=== PATIENT | female | born 1935 | race Caucasian/White ===

== ENCOUNTER 2019-06-10 12:52 | Outpatient (CLI) | payer MEDICARE, OTHER, SELFPAY ==
--- NOTE | 2019-06-10 13:03 | ECG_ITS ---
Measurements Intervals [place] Rate: 56 P: 86 AK: 213 QRS: -7 QRSD: 80 T: 53 QT: 398 QTc: 387 Interpretive Statements SINUS BRADYCARDIA WITH FIRST DEGREE AV BLOCK LOW QRS VOLTAGE IN PRECORDIAL LEADS BORDERLINE R WAVE PROGRESSION, ANTERIOR LEADS BASELINE ARTIFACT- I, II, III, AVR, AVL, AVF ABNORMAL ECG Electronically Signed On 06-10-2019 14:36:54 ANALYTICS ANALYST by Alexis Valentino D.O.
[2019-06-10 13:39] LABS: Blood Urea Nitrogen 17 mg/dL (7-17); Calcium 9.3 mg/dL (8.4-10.2); Carbon Dioxide 30 mmol/L (22-30); Chloride 101 mmol/L (98-107); Estimated Glomerular Filt Rate 53; Glucose 96 mg/dL (65-105); Potassium 4.2 mmol/L (3.4-5.0); Sodium 139 mmol/L (137-145)
== END 2019-06-10 12:53 | disposition home or self-care (01) ==
PROVIDERS: Anesthesiology; PCP Internal Medicine Endocrinology, Diabetes & Metabolism; Visit Provider Urology
DX: Z01.818 Encounter for other preprocedural examination (principal); I10 Essential (primary) hypertension; E11.9 Type 2 diabetes mellitus without complications; R94.31 Abnormal electrocardiogram [ECG] [EKG]
CPT/HCPCS: 36415; 80048; 93005

== ENCOUNTER 2019-06-12 01:36 | Day surgery (SDC) | payer MEDICARE, OTHER, SELFPAY ==
[2019-06-09 13:48] VITALS: BMI 22.4
--- NOTE | 2019-06-12 07:25 | WPDHPUPDATE1 ---
History and Physical Update Update Date/Time: 06/12/19 07:25 History and Physical has been reviewed, including an updated exam of the patient. There are NO changes in the patient's condition. Risks, benefits, and alternatives have been discussed and questions answered. Patient agrees to proceed with procedure.
[2019-06-12 08:34] VITALS: BP 123/45; PULSE 55; RESP 20; TEMP 36.5; O2SAT 100
[2019-06-12] MEDS: LACTATED RINGERS 1,000 ML 30 ML IV CONT (08:55)
[2019-06-12 09:03] LABS: Glucose Point of Care 135 (65-105)
--- NOTE | 2019-06-12 09:17 | WPDANESEPPF ---
Anes - Initial Pre Proc Eval Procedure: Operation Date: 06/12/19 10:00 Proposed Procedures p Cystoscopy,Bladder Biopsy with Steroid Injection - Gilles Martinez MD Date/Time: 06/12/19 09:17 Surgeon: Gilles Martinez MD Pre Op Diagnosis: hunners ulcer Patient Data Age: 84 Gender: F Height: 1.69 m Weight: 63.96 kg Allergies Allergy/AdvReac Type Severity Reaction Status Date / Time Sulfa (Sulfonamide Allergy Severe EYE Verified 06/09/19 13:39 Antibiotics) SWELLING Home Medications Medication Instructions Recorded Confirmed Type aspirin 81 mg PO DAILY 06/09/19 06/09/19 History atenolol 25 mg PO DAILY 06/09/19 06/09/19 History biotin 1 mg PO DAILY 06/09/19 06/09/19 History ergocalciferol (vitamin D2) 400 unit PO DAILY 06/09/19 06/09/19 History glucos sul [id number] 1 cap PO DAILY 06/09/19 06/09/19 History [Glucosamine Chondroitin] levothyroxine 100 mcg PO DAILY 06/09/19 06/09/19 History magnesium 200 mg PO DAILY 06/09/19 06/09/19 History multivitamin [Multiple Vitamins] 1 tablet PO DAILY 06/09/19 06/09/19 History rosuvastatin 10 mg PO 2XW 06/09/19 06/09/19 History sitagliptin-metformin [Janumet] 1 tablet PO BID 06/09/19 06/09/19 History zinc 50 mg PO DAILY 06/09/19 06/09/19 History Laboratory Tests 06/12/19 09:01 POC Capillary Glucose 135 mg/dl H mg/dl (65-105) Patient hx anesthesia problems: none Family hx anesthesia problems: none PMFSH Past Medical History Medical History (Updated 06/12/19 @ 09:17 by Elijah Newberry DO) Diabetes type 2, controlled History of skin cancer Hyperlipidemia Hypertension Hypothyroidism IBS (irritable bowel syndrome) JOEY (obstructive sleep apnea) CPAP Osteoarthritis Social History Social History Gender identity (if verbalized by the patient): Female Anes - Eval Final PreProcedure Day of Procedure 06/12/19 09:17 Patient weight: normal Heart: regular rate and rhythm Lungs: clear to auscultation and normal air movement Airway: Mallampati scale class III Neurological: alert and oriented Last oral intake: >/= 8 hours ASA classification: III Emergent: no Anesthetic plan: proceed Anesthesia type and monitoring: general GIVS and standard monitoring Informed Consent: The patient's anesthetic plan and its attendant risks and benefits were discussed with the patient/family/POA. Questions were solicited and answers provided to the satisfaction of the patient/family/POA.
[2019-06-12] MEDS: levoFLOXacin 500 MG/D5W 100 ML 500 MG/100 ML BAG 100 MG IVPB (10:04)
[2019-06-12] MEDS: TRIAMCINOLONE ACET INJ 40 MG/ML VIAL 200 MG IM (10:12)
[2019-06-12] MEDS: LIDOCAINE HCL 2% GEL UROJET 10 ML PKG MUCOUS MEM (10:13)
--- NOTE | 2019-06-12 10:19 | PM.PROC ---
Procedure Note - Detailed Date of procedure: 06/12/19 Pre-op diagnosis: hunners ulcer Hunner's ulcer Post-op diagnosis: same Procedure performed: Cystoscopy with bladder biopsy and injection of steroid Description of procedure: After anesthesia was induced the patient was correctly identified and informed consent was obtained. They are placed in the dorsal lithotomy position. There prepped and draped in a sterile fashion. A time-out performed. I performed cystoscopy. There were areas of Hunner's ulceration inside the bladder. Two total. They were both on the back wall. this was biopsied in generously fulgurated. I then injected Kenalog at a dose of 40 milligrams/mL. I injected 5 cc total. There was minimal bleeding from the injection sites. The bladder was examined under low insufflation pressures and there was no active bleeding. The bladder was drained. The awakened and transferred to the PACU in stable condition. Implants: None Anesthesia: MAC Surgeon: Gilles Martinez MD Drains: No Packing: No Pathology: yes (Bladder biopsy) Complications: No immediate complications Condition: stable Disposition: PACU
[2019-06-12 10:25] VITALS: BP 97/34; PULSE 64; O2SAT 94
[2019-06-12 10:45] VITALS: BP 106/41; PULSE 59; O2SAT 96
[2019-06-12 11:00] VITALS: BP 113/42; PULSE 57; O2SAT 96
[2019-06-12 11:30] VITALS: BP 130/50; PULSE 62; O2SAT 98
== END 2019-06-12 11:48 | disposition home or self-care (01) ==
PROVIDERS: PCP Internal Medicine Endocrinology, Diabetes & Metabolism; Visit Provider Urology
PROC: 0TBB8ZX Excision of Bladder, Via Natural or Artificial Opening Endoscopic, Diagnostic (ICD-10-PCS; CPT 52204; principal; 2019-06-12 10:00)
DX: N30.10 Interstitial cystitis (chronic) without hematuria (principal); I10 Essential (primary) hypertension; E78.5 Hyperlipidemia, unspecified; E11.9 Type 2 diabetes mellitus without complications; E03.9 Hypothyroidism, unspecified; G47.33 Obstructive sleep apnea (adult) (pediatric); M19.90 Unspecified osteoarthritis, unspecified site; Z79.82 Long term (current) use of aspirin; Z79.84 Long term (current) use of oral hypoglycemic drugs
CPT/HCPCS: 52283; 52204; 88305; A9270; J1956; J2704; J3010; J3301; J7120

== ENCOUNTER 2021-11-09 11:05 | Outpatient (CLI) | payer MEDICARE, OTHER, SELFPAY ==
--- NOTE | 2021-11-09 11:16 | ECG_ITS ---
Measurements Intervals [place] Rate: 65 P: 67 TN: 227 QRS: -7 QRSD: 71 T: 51 QT: 382 QTc: 397 Interpretive Statements SINUS RHYTHM WITH FIRST DEGREE AV BLOCK BASELINE ARTIFACT- I, II, AVR, AVL ABNORMAL ECG Electronically Signed On 11-09-2021 12:15:39 CDT by Alexis Valentino D.O.
[2021-11-09 11:58] LABS: Anion Gap 5 mmol/L (8-16); Blood Urea Nitrogen 18 mg/dL (7-17); Calcium 9.1 mg/dL (8.4-10.2); Carbon Dioxide 29 mmol/L (22-30); Chloride 106 mmol/L (98-107); Estimated Glomerular Filt Rate 53; Glucose 137 mg/dL (65-110); Potassium 4.1 mmol/L (3.4-5.0); Sodium 140 mmol/L (137-145)
== END 2021-11-09 11:06 | disposition home or self-care (01) ==
PROVIDERS: Anesthesiology; PCP Internal Medicine; Visit Provider Urology
DX: N32.9 Bladder disorder, unspecified (principal); E11.9 Type 2 diabetes mellitus without complications; Z01.818 Encounter for other preprocedural examination; I44.0 Atrioventricular block, first degree
CPT/HCPCS: 36415; 80048; 87077; 87086; 87186; 93005

== ENCOUNTER 2021-12-08 01:11 | Day surgery (SDC) | payer MEDICARE, OTHER, SELFPAY ==
[2021-11-07 08:21] VITALS: BMI 21.3
--- NOTE | 2021-11-07 08:40 | PC.NURSE ---
Report to the Outpatient Waiting Room, entrance under the green pavilion located off [facility], at time _1145_ on date _11/13/21_. OR Time: _1:45 PM_. - You and your visitor will be asked a series of questions to screen for COVID 19 for your protection. - Only one visitor is allowed at this time. - The patient visitor is requested to leave or wait in car when not with patient. - A mask is required within the hospital. Patients may have clear liquids (water, carbonated beverages, clear teas, apple juice) until 3 hours prior to surgery (1045 AM) with a maximum of 20 ounces. - No food from midnight until time of surgery Take the following medications with a SIP of water the morning of surgery: _ATENOLOL, LEVOTHYROXINE_ Medications to discontinue per physician _PT STATES ALREADY STOPPING ASPIRIN/VITAMINS/SUPPLEMENTS 10/30/21_ Date to take last dose Please no make-up, nail yakut, hairspray, perfume, deodorant, or body powder the day of surgery. No jewelry (including any body piercings) or valuables the day of surgery, leave them at home. Please take a shower or bath the night before, or the morning of, surgery with an antibacterial soap. Wear comfortable, loose fitting clothing. - Jewelry must be removed prior to entering the operating room. Rings and piercings that are not removed may be cut off. - The hospital will not accept responsibility for valuables. - Please leave all valuables, including medications, at home the day of surgery. If you are going home after surgery, a licensed special client bus driver must drive you home. - NO public transportation without another adult. - We recommend that an adult stay with you for 24 hours following discharge. - We also recommend that you do not drive, make important decision, drink alcoholic beverages, or take any drugs that were not prescribed by your health care provider for at least 24 hours after your discharge time. Follow any additional instructions given to you from your surgeon. If you or anyone in your household have experienced Covid symptoms in the past week, please notify your surgeon or the nurse liaison at the phone number below for possible testing. Telephone instructions given to ___PT and asked if any additional questions and then verbalized understanding. Patient advised to call surgeon office or pre surgery nurse liaison [phone] if any additional questions.
--- NOTE | 2021-11-11 10:56 | P.HP_ITS ---
H&P: HPI History of Present Illness Date/Time: 11/11/21 10:56 Chief Complaint: she has pelvic pains and bladder pains and feels like she is ready for another steroid injection. It has been sometime since her last injection. Review of Systems Review of Systems: as per history of present illness [facility] Past Medical History Medical History Diabetes type 2, controlled History of skin cancer Hyperlipidemia Hypertension Hypothyroidism IBS (irritable bowel syndrome) JEOY (obstructive sleep apnea) CPAP Osteoarthritis Social History Social History Smoking status: Former smoker Second hand tobacco smoke exposure: No Substance use: never Substance use type: does not use Gender identity (if verbalized by the patient): Female Spiritual care concerns: No Meds Home Medications and Allergies Home Medications Medication Instructions Recorded Confirmed Type aspirin 81 mg chewable tablet 81 mg PO HS 06/09/19 11/07/21 History atenolol 25 mg tablet 25 mg PO QAM 06/09/19 11/07/21 History ergocalciferol (vitamin D2) 10 mcg 400 unit PO DAILY 06/09/19 11/07/21 History (400 unit) tablet glucosamine sulf dipot 1 cap PO DAILY 06/09/19 11/07/21 History chlr,msm,chond 550 mg-C 30 mg-severino 1 mg capsule (Glucosamine Chondroitin) magnesium 200 mg tablet 200 mg PO HS 06/09/19 11/07/21 History multivitamin (Multiple Vitamins 1 tablet PO QAM 06/09/19 11/07/21 History tablet) rosuvastatin 10 mg tablet 10 mg PO 2XW 06/09/19 11/07/21 History sitagliptin 50 mg-metformin 500 mg 1 tablet PO BID 06/09/19 11/07/21 History tablet (Janumet) zinc 50 mg tablet 50 mg PO DAILY 06/09/19 11/07/21 History levothyroxine 75 mcg tablet 75 mcg PO QAM 11/07/21 11/07/21 History niacin 500 mg tablet 500 mg PO QAM 11/07/21 11/07/21 History omeprazole 20 mg tablet,delayed 20 mg PO DAILY PRN ACID REFLEX 11/07/21 11/07/21 History release ondansetron HCl 4 mg tablet 4 mg PO Q6H PRN Nausea 11/07/21 11/07/21 History Allergies Allergy/AdvReac Type Severity Reaction Status Date / Time Sulfa (Sulfonamide Allergy Severe EYE Verified 11/07/21 08:09 Antibiotics) SWELLING Exam Narrative: no acute distress alert and oriented x3 normal breathing Assessment and Plan Assessment and plan (1) 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 Understands the risks of bleeding, infection, recurrence, chance the ulcers not present. She agrees to proceed
--- NOTE | 2021-11-13 08:29 | SUR.PREOP ---
[address] ross resulted abnormal urine culture,states called in antibiotic .
[2021-11-27 14:37] VITALS: BMI 21.3
--- NOTE | 2021-11-27 14:40 | PC.NURSE ---
PRE-OP INSTRUCTIONS, PLEASE READ CAREFULLY Report to the Outpatient Waiting Room, entrance under the green pavilion located off [facility], at time _0915_ on date _12/08/21_. OR Time: _1115_. - You and your visitor will be asked a series of questions to screen for COVID 19 for your protection. - Only one visitor is allowed at this time. - The patient visitor is requested to leave or wait in car when not with patient. - A mask is required within the hospital. Patients may have clear liquids (water, carbonated beverages, clear teas, apple juice) until 3 hours prior to surgery (0815 AM) with a maximum of 20 ounces. - No food from midnight until time of surgery Take the following medications with a SIP of water the morning of surgery: _ATENOLOL, LEVOTHYROXINE__ Medications to discontinue - _ASPIRIN/VITAMINS/SUPPLEMENTS PER DR. SALINAS INSTRUCTIONS - PT STATES 7 DAYS PRIOR TO SURGERY_ Date to take last dose_12/04/21_ Please no make-up, nail romanian, hairspray, perfume, deodorant, or body powder the day of surgery. No jewelry (including any body piercings) or valuables the day of surgery, leave them at home. Please take a shower or bath the night before, or the morning of, surgery with an antibacterial soap. Wear comfortable, loose fitting clothing. - Jewelry must be removed prior to entering the operating room. Rings and piercings that are not removed may be cut off. - The hospital will not accept responsibility for valuables. - Please leave all valuables, including medications, at home the day of surgery. If you are going home after surgery, a licensed residential driver must drive you home. - NO public transportation without another adult. - We recommend that an adult stay with you for 24 hours following discharge. - We also recommend that you do not drive, make important decision, drink alcoholic beverages, or take any drugs that were not prescribed by your health care provider for at least 24 hours after your discharge time. Follow any additional instructions given to you from your surgeon. If you or anyone in your household have experienced Covid symptoms in the past week, please notify your surgeon or the nurse liaison at the phone number below for possible testing. Telephone instructions given to __PT__and asked if any additional questions and then verbalized understanding. Patient advised to call surgeon office or pre surgery nurse liaison [phone] if any additional questions.
--- NOTE | 2021-12-04 07:54 | P.HP_ITS ---
H&P: HPI History of Present Illness Date/Time: 12/04/21 07:54 Chief Complaint: Hunner's ulcer Narrative: in need of another steroid injection Review of Systems 2 Review of Systems: All systems reviewed & are unremarkable except as noted in HPI and below PMFSH Past Medical History Medical History Diabetes type 2, controlled History of skin cancer Hyperlipidemia Hypertension Hypothyroidism IBS (irritable bowel syndrome) JOEY (obstructive sleep apnea) CPAP Osteoarthritis Social History Social History Smoking status: Former smoker Second hand tobacco smoke exposure: No Substance use: never Substance use type: does not use Gender identity (if verbalized by the patient): Female Spiritual care concerns: No Meds Home Medications and Allergies Home Medications Medication Instructions Recorded Confirmed Type aspirin 81 mg chewable tablet 81 mg PO HS 06/09/19 11/27/21 History atenolol 25 mg tablet 25 mg PO QAM 06/09/19 11/07/21 History ergocalciferol (vitamin D2) 10 mcg 400 unit PO DAILY 06/09/19 11/27/21 History (400 unit) tablet glucosamine sulf dipot 1 cap PO DAILY 06/09/19 11/27/21 History chlr,msm,chond 550 mg-C 30 mg-severino 1 mg capsule (Glucosamine Chondroitin) magnesium 200 mg tablet 200 mg PO HS 06/09/19 11/07/21 History multivitamin (Multiple Vitamins 1 tablet PO QAM 06/09/19 11/27/21 History tablet) rosuvastatin 10 mg tablet 10 mg PO 2XW 06/09/19 11/07/21 History sitagliptin 50 mg-metformin 500 mg 1 tablet PO BID 06/09/19 11/07/21 History tablet (Janumet) zinc 50 mg tablet 50 mg PO DAILY 06/09/19 11/27/21 History levothyroxine 75 mcg tablet 75 mcg PO QAM 11/07/21 11/07/21 History niacin 500 mg tablet 500 mg PO QAM 11/07/21 11/07/21 History omeprazole 20 mg tablet,delayed 20 mg PO DAILY PRN ACID REFLEX 11/07/21 11/07/21 History release ondansetron HCl 4 mg tablet 4 mg PO Q6H PRN Nausea 11/07/21 11/07/21 History Allergies Allergy/AdvReac Type Severity Reaction Status Date / Time Sulfa (Sulfonamide Allergy Severe EYE Verified 11/07/21 08:09 Antibiotics) SWELLING Exam Narrative: no acute distress normal breathing alert oriented x3 Assessment and Plan Assessment and plan (1) 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
--- NOTE | 2021-12-08 07:12 | WPDHPUPDATE1 ---
History and Physical Update Update Date/Time: 12/08/21 07:12 History and Physical has been reviewed, including an updated exam of the patient. There are NO changes in the patient's condition. Risks, benefits, and alternatives have been discussed and questions answered. Patient agrees to proceed with procedure.
[2021-12-08 09:33] LABS: Appearance Urine Clear (Clear); Bilirubin Urine Negative (Negative); Color Urine Yellow (Yellow); Glucose Urine UA Negative (Negative); Ketones Urine Negative (Negative); Leukocyte Esterase Ur 1+ LEU/UL (Negative); Nitrate Urine Negative (Negative); Protein Urine Negative (Negative); Specific Grav Ur 1.015 (1.001-1.035); Urobilinogen Urine 0.2 mg/dL (<2.0)
[2021-12-08 09:45] LABS: Add Urine Microscopic? YES; Blood Urine Trace-Intact (Negative)
[2021-12-08 09:46] LABS: Bacteria Urine Trace /hpf; RBC Urine 0-2 /hpf (0-2); Squamous Epithelial Cell Urine Rare /hpf (Few)
--- NOTE | 2021-12-08 09:54 | WPDANESEPPF ---
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 Patient Data Age: 86 Gender: F Height: 1.7 m Weight: 61.36 kg Allergies Allergy/AdvReac Type Severity Reaction Status Date / Time Sulfa (Sulfonamide Allergy Severe EYE Verified 11/07/21 08:09 Antibiotics) SWELLING Home Medications Medication Instructions Recorded Confirmed Type aspirin 81 mg chewable tablet 81 mg PO HS 06/09/19 11/27/21 History atenolol 25 mg tablet 25 mg PO QAM 06/09/19 11/07/21 History ergocalciferol (vitamin D2) 10 mcg 400 unit PO DAILY 06/09/19 11/27/21 History (400 unit) tablet glucosamine sulf dipot 1 cap PO DAILY 06/09/19 11/27/21 History chlr,msm,chond 550 mg-C 30 mg-severino 1 mg capsule (Glucosamine Chondroitin) magnesium 200 mg tablet 200 mg PO HS 06/09/19 11/07/21 History multivitamin (Multiple Vitamins 1 tablet PO QAM 06/09/19 11/27/21 History tablet) rosuvastatin 10 mg tablet 10 mg PO 2XW 06/09/19 11/07/21 History sitagliptin 50 mg-metformin 500 mg 1 tablet PO BID 06/09/19 11/07/21 History tablet (Janumet) zinc 50 mg tablet 50 mg PO DAILY 06/09/19 11/27/21 History levothyroxine 75 mcg tablet 75 mcg PO QAM 11/07/21 11/07/21 History niacin 500 mg tablet 500 mg PO QAM 11/07/21 11/07/21 History omeprazole 20 mg tablet,delayed 20 mg PO DAILY PRN ACID REFLEX 11/07/21 11/07/21 History release ondansetron HCl 4 mg tablet 4 mg PO Q6H PRN Nausea 11/07/21 11/07/21 History Laboratory Tests 12/08/21 09:26 Urine Color Yellow (Yellow) Urine Appearance Clear (Clear) Urine pH 6.0 (5.0-9.0) Ur Specific [place] 1.015 (1.001-1.035) Urine Protein Negative mg/dL mg/dL (Negative) Urine Glucose (UA) Negative mg/dL mg/dL (Negative) Urine Ketones Negative mg/dL mg/dL (Negative) Ur Blood (Man) Trace-intact (Negative) Urine Nitrate Negative (Negative) Urine Bilirubin Negative (Negative) Urine Urobilinogen 0.2 mg/dL mg/dL (<2.0) Leukocyte Esterase Rfl 1+ MARIBELL/UL H MARIBELL/UL (Negative) Urine RBC 0-2 /hpf /hpf (0-2) Urine WBC 10-15 /hpf H /hpf Ur Squamous Epith Cells Rare /hpf /hpf (Few) Urine Bacteria Trace /hpf /hpf Patient hx anesthesia problems: none Family hx anesthesia problems: none Results Review: All pre-operative results and documents have been reviewed as part of the pre-operative evaluation. [facility] Past Medical History Medical History Diabetes type 2, controlled History of skin cancer Hyperlipidemia Hypertension Hypothyroidism IBS (irritable bowel syndrome) JOEY (obstructive sleep apnea) CPAP Osteoarthritis Social History Social History Smoking status: Former smoker Second hand tobacco smoke exposure: No Substance use: never Substance use type: does not use Living arrangements: alone Gender identity (if verbalized by the patient): Female Spiritual care concerns: No Anes - Eval Final PreProcedure Day of Procedure 12/08/21 09:54 Patient weight: normal Heart: regular rate and rhythm Lungs: clear to auscultation Airway: Mallampati scale class II Neurological: alert and oriented Last oral intake: >/= 8 hours ASA classification: III Emergent: no Anesthetic plan: proceed Anesthesia type and monitoring: general GIVS and standard monitoring Results Review: All pre-operative results and documents have been reviewed as part of the pre-operative evaluation. Informed Consent: The patient's anesthetic plan and its attendant risks and benefits were discussed with the patient/family/POA. Questions were solicited and answers provided to the satisfaction of the patient/fa
[2021-12-08 10:09] VITALS: BP 123/30; PULSE 58; RESP 14; TEMP 35.9; O2SAT 100
[2021-12-08] MEDS: LACTATED RINGERS 1,000 ML 30 ML IV CONT (10:12)
[2021-12-08 10:33] LABS: Glucose Point of Care 119 mg/dl (65-105)
[2021-12-08] MEDS: ceFAZolin 2 GM/D5W 50 ML 2 GM/50 ML BAG IVPB (10:34)
[2021-12-08] MEDS: TRIAMCINOLONE ACET INJ 40 MG/ML VIAL 200 MG XX (10:38)
[2021-12-08] MEDS: LIDOCAINE HCL 2% GEL UROJET 10 ML PKG MUCOUS MEM (10:39)
--- NOTE | 2021-12-08 10:53 | W.PM.PROC2 ---
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 She is having some recurrent symptoms. She has presents today for treatment. She understands risks of bleeding, infection, damage to the urinary tract, incomplete efficacy. She agrees to proceed Findings Area of Hunner's ulceration near the dome of the bladder Description of Procedure She was correctly identified. Informed consent obtained. From the operating room. She was given MAC anesthesia. She was placed in dorsal lithotomy position. She was prepped and draped in a sterile fashion. Time-out performed. Cystoscopy revealed a smooth-walled bladder. There is no significant trabeculations. Ureteral orifices were normal. There is an area of Hunner's ulceration near the dome of the bladder. This area is biopsied and gently fulgurated. I then injected steroids in the sub urothelial layer taking great care not to inject through the bladder. I injected 5 cc total of Kenalog 40 milligrams/milliliter. There is no bleeding from the injection sites. She was awakened transferred to PACU in stable condition. Implants None Estimated Blood Loss 1 Drains No Packing No Pathology Yes (Bladder biopsy) Condition Stable Disposition PACU
[2021-12-08 10:57] VITALS: BP 100/47; PULSE 65; RESP 14; O2SAT 97
[2021-12-08 11:25] VITALS: BP 126/50; PULSE 60
[2021-12-08 11:30] LABS: Glucose Point of Care 122 mg/dl (65-105)
[2021-12-08 11:55] VITALS: BP 126/50; PULSE 60; RESP 20
[2021-12-08 12:25] VITALS: BP 109/50; PULSE 61; RESP 20
== END 2021-12-08 12:30 | disposition home or self-care (01) ==
PROVIDERS: PCP Internal Medicine; Visit Provider Urology
PROC: 3E0K8GC Introduction of Other Therapeutic Substance into Genitourinary Tract, Via Natural or Artificial Opening Endoscopic (ICD-10-PCS; CPT 52204; principal; 2021-12-08 10:30)
DX: N30.10 Interstitial cystitis (chronic) without hematuria (principal); I10 Essential (primary) hypertension; E78.5 Hyperlipidemia, unspecified; E03.9 Hypothyroidism, unspecified; E11.9 Type 2 diabetes mellitus without complications; G47.33 Obstructive sleep apnea (adult) (pediatric); K58.9 Irritable bowel syndrome, unspecified; Z87.891 Personal history of nicotine dependence; Z79.82 Long term (current) use of aspirin; Z79.84 Long term (current) use of oral hypoglycemic drugs
CPT/HCPCS: 52204; 52283; 81001; 82948; 87086; 88305; A9270; J0690; J2704; J3010; J3301; J7120

== ENCOUNTER 2022-01-29 16:16 | Emergency (ER) | payer MEDICARE, OTHER, SELFPAY ==
--- NOTE | ~2022-01-29 | XR_ITS ---
EXAM: XR hand RT min 3V DATE: 01/29/2022 17:35 HISTORY: FALL TODAY, BRUISING THROUGHOUT 1ST DIGIT, SCRAPS TO PALM . COMPARISON: None available. FINDINGS: Decreased mineralization. No fracture or dislocation. No lytic or blastic lesion. Scattere d severe arthritic changes. No erosion or periosteal change. Chondrocalcinosis. IMPRESSION: No acute osseous finding in the right hand. Reviewed, dictated and finalized at location K.
--- NOTE | ~2022-01-29 | XR_ITS ---
EXAM: XR knee RT min 4V DATE: 01/29/2022 19:37 HISTORY: pain, fall . COMPARISON: None available. FINDINGS: Decreased mineralization. No acute fracture or dislocation. Old proximal fibular shaft fra cture. No lytic or blastic lesion. Moderate tricompartmental osteoarthritis. No erosion or periosteal change. Soft tissues within normal limits. Moderate volume joint fluid. IMPRESSION: No acute osseous finding in the right knee. Reviewed, dictated and finalized at location K.
--- NOTE | ~2022-01-29 | CT_ITS ---
EXAMINATION: CT facial bones wo con DATE: 01/29/2022 17:29 INDICATION: facial injuries . TECHNIQUE: Computed tomography (CT) of the facial bones and maxillofacial region was performed withou t intravenous contrast. Automated exposure control and iterative reconstruction technique were employ ed. The dose-length product was 300.62 mGy-cm. COMPARISON: CT brain, same date. FINDINGS: Soft Tissues: Forehead contusion and laceration. Left nasal soft tissue swelling/nodularity Facial bones: No acute fracture. No lytic or blastic process. Bilateral TMJ and cervical spine degen erative change. Eyes: The globes are intact. The soft tissue planes of the orbits are maintained. Paranasal Sinuses: The visualized aerated spaces are clear. Foreign Bodies: No radiopaque foreign bodies. Other Findings: Dental caries. Dental implants. IMPRESSION: No evidence of acute facial bone fracture. Reviewed, dictated and finalized at location K.
--- NOTE | ~2022-01-29 | CT_ITS ---
EXAMINATION: CT brain wo con DATE: 01/29/2022 17:23 INDICATION: head injury . TECHNIQUE: Computed tomography (CT) of the head was performed without intravenous contrast. The mA wa s adjusted according to patient size. Iterative reconstruction technique was employed. The dose-lengt h product was 605.33 mGy-cm. COMPARISON: None FINDINGS: No acute intracranial hemorrhage or extra-axial fluid collection. No hydrocephalus, mass, or herniation. No acute ischemic infarct. Unremarkable dural venous sinus attenuation. No acute osseous abnormality. Hyperostosis. Forehead contusions and lacerations. The aerated spaces are clear. Mild atrophy and chronic white matter change. Atherosclerotic intracranial calcification. Bilateral l ens replacements. IMPRESSION: No acute intracranial process. Reviewed, dictated and finalized at location K.
[2022-01-29 16:20] VITALS: BP 146/55; PULSE 75; RESP 18; TEMP 36.1; O2SAT 100
--- NOTE | 2022-01-29 17:11 | ED.FALL ---
HPI - Fall General Chief Complaint: Fall Stated Complaint: FALL-LAC TO FACE Time Seen by Provider: 01/29/22 16:46 Source: patient and RN notes reviewed Mode of arrival: ambulatory Limitations: no limitations History of Present Illness HPI Narrative: This is an 86 year old female who presents for evaluation of a fall. PAtient was leaning over to do something when she fell face first. She hit her head on a rock and large shell, but she denies LOC. She reports left frontal headache at location of a hematoma. She denies nausea, vomiting or dizziness. She also denies neck pain, back pain or rib pain. She has bruising to her right palm. She took aspirin 81 mg prior to arrival but she denies taking any anticoagulation or antiplatelet daily since October. Related Data Home Medications Medication Instructions Recorded Confirmed aspirin 81 mg chewable tablet 81 mg PO HS 06/09/19 11/27/21 atenolol 25 mg tablet 25 mg PO QAM 06/09/19 12/08/21 ergocalciferol (vitamin D2) 10 mcg 400 unit PO DAILY 06/09/19 11/27/21 (400 unit) tablet glucosamine sulf dipot 1 cap PO DAILY 06/09/19 11/27/21 chlr,msm,chond 550 mg-C 30 mg-severino 1 mg capsule (Glucosamine Chondroitin) magnesium 200 mg tablet 200 mg PO HS 06/09/19 11/07/21 multivitamin (Multiple Vitamins 1 tablet PO QAM 06/09/19 11/27/21 tablet) rosuvastatin 10 mg tablet 10 mg PO 2XW 06/09/19 11/07/21 sitagliptin 50 mg-metformin 500 mg 1 tablet PO BID 06/09/19 11/07/21 tablet (Janumet) zinc 50 mg tablet 50 mg PO DAILY 06/09/19 11/27/21 levothyroxine 75 mcg tablet 75 mcg PO QAM 11/07/21 12/08/21 niacin 500 mg tablet 500 mg PO QAM 11/07/21 11/07/21 omeprazole 20 mg tablet,delayed 20 mg PO DAILY PRN ACID REFLEX 11/07/21 11/07/21 release ondansetron HCl 4 mg tablet 4 mg PO Q6H PRN Nausea 11/07/21 11/07/21 Allergies Allergy/AdvReac Type Severity Reaction Status Date / Time Sulfa (Sulfonamide Allergy Severe EYE Verified 01/29/22 16:37 Antibiotics) SWELLING Review of Systems Review of Systems: All systems reviewed & are unremarkable except as noted in HPI and below Constitutional: Constitutional: Denies chills, Denies fatigue and Denies fever(s) Eyes: Eyes: Denies change in vision and Denies photophobia ENT: Reports epistaxis and Denies sore throat Cardiovascular: Cardiovascular: Denies chest pain Respiratory: Respiratory: Denies chest congestion, Denies cough and Denies dyspnea Gastrointestinal: Gastrointestinal: Denies abdominal pain, Denies nausea and Denies vomiting PMFSH Past Medical History Medical History (Updated 01/30/22 @ 00:00 by Background Daemon) Diabetes type 2, controlled History of skin cancer Hyperlipidemia Hypertension Hypothyroidism IBS (irritable bowel syndrome) JOEY (obstructive sleep apnea) CPAP Osteoarthritis Surgical History Surgical History (Updated 01/29/22 @ 17:15 by Jasmine Murphy MD) H/O cystoscopy Social History Social History Smoking status: Former smoker Second hand tobacco smoke exposure: No Substance use: never Substance use type: does not use Gender identity (if verbalized by the patient): Female Spiritual care concerns: No Exam Const: General: no acute distress and alert Nutritional Appearance: well nourished Orientation/consciousness: patient oriented x3 HENMT: Head: hematoma left frontal and laceration (right forehead irregular laceration 4 cm; left forehead laceration 2 cm,) Ears: external ears normal and TM's normal bilaterally Mouth: Yes Normal oral and palatal mucosa present Throat: posterior oropharynx normal Other: mid forehead laceration that 3 cm Eyes: Conjunctivae: conjunctivae normal Pupils: Equal, round and reactive pupils present EOM: EOMs intact bilaterally Other: left medial periorbital ecchymosis Neck: Neck: normal visual inspection and no lymphadenopathy Chest: Chest palpation & inspection: norm
[2022-01-29] MEDS: TETANUS,DIPHTHERIA,AC PERTUSSIS ADULT (0.5 ML) BOOSTRIX IM (17:44)
[2022-01-29 21:17] VITALS: PULSE 88; RESP 18; O2SAT 100
== END 2022-01-29 21:25 | disposition home or self-care (01) ==
PROVIDERS: Emergency Provider General Practice; PCP Internal Medicine
DX: S01.81XA Laceration without foreign body of other part of head, initial encounter (principal); S80.01XA Contusion of right knee, initial encounter; S60.221A Contusion of right hand, initial encounter; S60.551A Superficial foreign body of right hand, initial encounter; Z23 Encounter for immunization; E11.9 Type 2 diabetes mellitus without complications; E78.5 Hyperlipidemia, unspecified; I10 Essential (primary) hypertension; E03.9 Hypothyroidism, unspecified; K58.9 Irritable bowel syndrome, unspecified; G47.33 Obstructive sleep apnea (adult) (pediatric); M19.90 Unspecified osteoarthritis, unspecified site; Z85.828 Personal history of other malignant neoplasm of skin; Z87.891 Personal history of nicotine dependence; Z79.82 Long term (current) use of aspirin; Z79.84 Long term (current) use of oral hypoglycemic drugs; W01.198A Fall on same level from slipping, tripping and stumbling with subsequent striking against other object, initial encounter
CPT/HCPCS: 12015; 70450; 70486; 73130; 73564; 90471; 90715; 99284

== ENCOUNTER 2025-03-18 09:19 | Outpatient (CLI) | payer MEDICARE, OTHER, SELFPAY ==
--- NOTE | ~2025-03-18 | CT_ITS ---
EXAMINATION: CT abdomen pelvis wo/w con DATE: 03/18/2025 10:07 INDICATION: Microscopic hematuria TECHNIQUE: Computed tomography (CT) of the abdomen and pelvis was performed without intravenous contrast. CT of the abdomen and pelvis was then performed with a total of 130 mL Omnipaque-350 intravenous contrast using a double-bolus technique for simultaneous opacification of the renal parenchyma and renal collecting system. Automated exposure control and iterative reconstruction technique were employed. The dose-length product was 774.65 mGy-cm. COMPARISON: 07/12/2017 FINDINGS: Mild emphysema in the visualized lower lungs. Peripheral irregular septal line thickening at both lung bases which could represent atelectasis, mild pulmonary edema or more chronic interstitial lung disease. Heart size is normal. Atherosclerotic coronary artery calcific lesions and aortic valve desiccation. No pericardial or pleural effusion. Small sliding-type hiatal hernia. Liver, gallbladder, spleen, pancreas and bilateral adrenal glands are normal. Likely age-related mild bilateral renal atrophy with symmetric parenchymal enhancement. No urolithiasis or hydronephrosis/hydroureter. Bilateral renal collecting systems including all but the distalmost ureters are opacified on the postcontrast imaging with no evident filling defects or urothelial irregularities. There is also contrast opacification of the bladder which appears normal. Age-related atrophy of the uterus and left ovary. Interval incr ease in size of a now 6.0 x 5.4 x 3.3 cm right adnexal cyst without evident internal septation or solid enhancing soft tissue component. Large amount of stool throughout the mid to distal colon which could be seen with constipation. Mild diverticulosis along the sigmoid colon without adjacent inflammatory stranding to suggest diverticulitis. No bowel obstruction. No free intraperitoneal gas or fluid. No pathologically enlarged abdominal or pelvic lymphadenopathy. Right total hip arthroplasty. Severe lumbar spondylosis with chronic L2 compression fracture. IMPRESSION: 1. Mild likely age-related symmetric bilateral renal atrophy. No urolithiasis, urothelial irregularities or other etiology for reported microscopic hematuria. 2. Interval increase in size of a now 6.0 cm simple appearing right adnexal cyst. 3. Mild emphysema with persistent irregular septal line thickening at the bilateral lung bases suggestive of chronic interstitial lung disease with differential including atelectasis or mild pulmonary edema. 4. Large amount of stool in the mid to distal colon suggestive of constipation. Reviewed, dictated and finalized at location A. [facility] [employer] IMPRESSION: 1. Mild likely age-related symmetric bilateral renal atrophy. No urolithiasis, urothelial irregularities or other etiology for reported microscopic hematuria. 2. Interval increase in size of a now 6.0 cm simple appearing right adnexal cys t. 3. Mild emphysema with persistent irregular septal line thickening at the bilat eral lung bases suggestive of chronic interstitial lung disease with differenti al including atelectasis or mild pulmonary edema. 4. Large amount of stool in the mid to distal colon suggestive of constipation.
[2025-03-18 09:45] LABS: Estimated Glomerular Filt Rate 52
== END 2025-03-18 09:20 | disposition home or self-care (01) ==
PROVIDERS: PCP Internal Medicine; Visit Provider Nurse Practitioner Family
DX: R31.29 Other microscopic hematuria (principal); J43.9 Emphysema, unspecified
CPT/HCPCS: 74178; Q9967